=== PATIENT | female | born 1995 | race Hispanic/Latino ===

== ENCOUNTER 2017-05-29 23:41 | Emergency (ER) | payer OTHER ==
[~2017-05-29] VITALS: Ht 152.4 cm; Wt 90.9 kg
[~2017-05-29 23:41] MED LIST: OXYC-407 PO
[2017-05-29 23:52] VITALS: BP 131/95; PULSE 92; RESP 16; O2SAT 98
--- NOTE | 2017-05-30 | ED.REPORT ---
HPI-Abd Pain F Under 41 Date of Service May 30, 2017 ED Provider: Lexx Weaver MD Pt is a 21 year old female with a history of pyelonephritis who presents to the ED complaining of right flank pain onset earlier today. Additional symptoms include nausea, vomiting s/p eating, rhinorrhea, chills, urinary frequency, and malaise. She denies fever or cough. Her last menses was one week ago and was normal. Nursing Notes Stated Complaint: FLANK PAIN Chief Complaint: General Complaint Nursing Notes Reviewed: Yes Allergies: Coded Allergies: hydrocodone (Verified Adverse Reaction, Severe, ITCHING, 05/29/17) acetaminophen (Verified Adverse Reaction, Intermediate, itchy, 05/29/17) Scheduled PRN Oxycodone HCl/Acetaminophen 5-325 (Endocet 5-325) 1 Each Tablet 1-2 TABLET PO Q4H PRN PRN For Pain General Time Seen by MD: 23:59 Chief Complaint Flank pain right Hx Obtained From: Patient Arrived By: Walk-in Sudden in Onset?: Yes Onset Occurred: 5 - 8 hours ago Symptom Duration: Constant Quality: Painful Severity: Current: Mild Severity: Maximum: Moderate Recent Healthcare: No recent doctor visit, No recent hospitalization Similar Sx Previous: Yes Past Medical History Past Medical History Notes: PCP: Dr. Pennie Olson Past Medical History Mastitis Pyelonephritis Left labial abscess Depression Anxiety Past Surgical History Cyst removal in 2012 Hidradenitis Family History noncontributory Smoking History Light Tobacco Smoker Social History Alcohol Use: Denies alcohol use Other Social History: Local resident Ambulatory Status Independent Review of Systems Constitutional: Reports: Chills, Malaise, Denies: Fever Respiratory: Denies: Non-productive cough, Prod cough, clear GI: Reports: Nausea, Vomiting Female: Reports: Flank pain (Right-sided), Urinary frequency Complete sys rev & neg: except as marked. Physical Exam Initial Vital Signs Vital Signs (First) Date Time Temp Pulse Resp B/P Pulse Ox O2 Delivery O2 Flow Rate FiO2 05/29/17 23:52 36.8 92 16 131/95 98 Room Air Initial VS: Reviewed Head / Eyes: Atraumatic, Normocephalic Neck: Supple, Full range of motion Skin: Warm, Dry, No cyanosis Neurologic: Alert, Oriented, Nonfocal Psychiatric: Mood/affect normal, Behavior normal, Normal thought content General/Constitutional: Awake, Alert Respiratory / Chest: Atraumatic, Breath sounds NL, Breath sounds = bilat, No respiratory distress Cardiovascular: Heart rate NL, Regular rhythm, Heart sounds NL, No gallop, No murmurs, No rubs Abdomen: Soft, Non-tender, BS normoactive Back: Full range of motion Right-sided CVAT Interpretation & Diagnostics Lab Results Interpretation Test 05/30/17 00:11 Urine Color Yellow (YELLOW) Urine Appearance Clear (CLEAR,HAZY) Urine pH 7.0 (5.0-8.0) Urine Specific [place] 1.010 (1.003-1.035) Urine Protein Negativemg/dL (NEG,TRACE) Urine Glucose (UA) Negativemg/dL (NEGATIVE) Urine Ketones Negativemg/dL (NEGATIVE) Urine Occult Blood Negative (NEGATIVE) Urine Nitrite Negative (NEGATIVE) Urine Bilirubin Negative (NEGATIVE) Urine Urobilinogen Normalmg/dL (NORMAL) Urine Leukocyte Esterase Trace (NEGATIVE) Urine RBC 0-2/hpf (0-2) Urine WBC 0-5/hpf (0-5) Urine Epithelial Cells Many/hpf (NONE-MOD) Urine Crystals None seen (NONE SEEN) Urine Bacteria Few/hpf (NONE-FEW) Urine Hyaline Casts None/lpf (NONE) Urine Granular Casts None seen (NONE SEEN) Urine Waxy Casts None seen (NONE SEEN) Urine Red Blood Cell Casts None seen (NONE SEEN) Urine White Blood Cell Casts None seen (NONE SEEN) Urine Mucus None seen (None Seen) Urine Trichomonas None seen (NONE SEEN) Urine Yeast None (NONE SEEN) Urinalysis Comment None Urine Culture Reflexed Indicated Lab Results Interpretation: UA: not Re-Eval/Medical Decision Med Decision/Clinical Course Med Decision/Clinical Course: Well-appearing 21-year-old female with a history of pyelonephritis complaining of right flank pain and dysuria. She does have some bacteria in her urine however otherwise is fairly unimpressive. Given her exam and history, we will empirically treat her nonetheless. She is instructed to call in 48 hours for culture results and antibiotics may be discontinued at that time if culture is negative. She also had some itching after her dose of Percocet for her flank pain. She reported a previous intolerance to Vicodin but specifically told me that she tolerated Percocet. She later disclosed that she had also had itching related to Tylenol. She had no respiratory difficulties no mucosal swelling and was given Benadryl 50 mg by mouth. Source of Hx: Old records Re-Evaluation/Progress : Time of Eval: 01:26 Patient Status: Condition improved Re-Evaluation/Progress Note: Patient rechecked. Discussed plan for discharge. Patient understands and agrees with plan. F/U instructions and RTER warnings given. All questions addressed at this time. Counseled Regarding: Diagnosis, Lab results, Need for follow-up, When/why to return to ED Discharge & Departure Primary Impression: Pyelonephritis Disposition: Home Discharge Condition All VS Reviewed: Yes Condition: Stable Additional Instructions: Your emergency department evaluation today including interview and examination are reassuring. It is unclear if your symptoms are caused by a kidney infection or just back pain. You should call in a couple of days to check for a result of your urine. Take 600 mg of ibuprofen 3-4 times a day for your pain. Also, take the antibiotic, cephalexin, 3 times a day until finished or until your urine sample has been resulted and you are told to stop. You may take ondanestron as needed for nausea. Please call your primary care physician tomorrow in order to schedule a follow- up appointment for a recheck in 2-3 days. Please return to the emergency department for any new or worsening conditions including vomiting fever or chills. Referrals: Pennie Olson MD (PCP) Scribe Attestation Portions of this note were transcribed by Crystal Miranda. I, Dr. Weaver, personally performed the history, physical exam and medical decision-making; I reviewed and confirmed the accuracy of the information in the transcribed note. copies to: Pennie Olson MD, Donald L MD May 30, 2017 00:00 Crystal Miranda May 30, 2017 00:04
[2017-05-30] MEDS ORDERED: oxyCODONE-Acetamin 5-325 mg Tablet PO ONE (00:20)
[2017-05-30 00:26] LABS: APPEARANCE,URINE CLEAR (CLEAR,HAZY); COLOR,URINE YELLOW (YELLOW); OCCULT BLOOD,URINE NEGATIVE (NEGATIVE); UROBILINOGEN,URINE NORMAL (NORMAL)
[2017-05-30] MEDS ORDERED: _Ondansetron ODT 4 mg Tablet PO PRN (00:40)
[2017-05-30] MEDS ORDERED: diphenhydrAMINE 50 mg Capsule PO ONE (01:05)
[2017-05-30] MEDS ORDERED: diphenhydrAMINE 25 mg Capsule PO ONE (01:10)
[2017-05-30 01:55] VITALS: BP 132/88; PULSE 88; RESP 16; O2SAT 99
[2017-05-30] MEDS ORDERED: _Cephalexin 500 mg Capsule PO SCH (08:30)
== END 2017-05-30 01:56 | disposition home or self-care (01) ==
LOC: SED 23:41
DX: N12 Tubulo-interstitial nephritis, not specified as acute or chronic (principal); F41.9 Anxiety disorder, unspecified; F17.200 Nicotine dependence, unspecified, uncomplicated; Z87.448 Personal history of other diseases of urinary system; Z88.5 Allergy status to narcotic agent; Z88.6 Allergy status to analgesic agent